=== PATIENT | male | born 1970 | race Caucasian/White ===

== ENCOUNTER 2016-09-07 08:03 | Day surgery (SDC) | payer OTHER ==
[2016-09-07] MEDS ORDERED: NS 1,000 ML IV ONE (08:16)
[2016-09-07] MEDS ORDERED: DIAZEPAM 5 MG TAB PO ONE (08:16)
[2016-09-07] MEDS ORDERED: diphenhydrAMINE 25 MG CAP PO ONE ×2 (08:16→09:04)
[2016-09-07] MEDS ORDERED: ASPIRIN EC 325 MG TAB PO ONE ×2 (08:16→09:04)
[2016-09-07] MEDS ORDERED: FAMOTIDINE 20 MG TAB PO ONE (08:16)
--- NOTE | 2016-09-07 08:45 | CPEKG ---
Heart Rate: 76 RR Interval: 789 P-R Interval: 136 QRSD Interval: 92 QT Interval: 380 QTC Interval: 428 P Ames: 44 QRS Ames: 8 T Wave Ames: 20 EKG Severity - NORMAL ECG - EKG Impression: SINUS RHYTHM Electronically Signed By: Iona Steven 07-Sep-2016 15:10:40
[2016-09-07] MEDS ORDERED: DIAZEPAM 5 MG TAB ONE (09:04)
[2016-09-07] MEDS ORDERED: FAMOTIDINE 20 MG TAB ONE (09:04)
[2016-09-07 09:09] LABS: % IMMATURE GRANULYOCYTES 0.3 % (0.0-1.1); ABSOLUTE IMMATURE GRANULOCYTES 0.02 10^3/uL (0.00-0.10); ADD DIFF? NO; ADD MORPH? NO; ADD SCAN? NO; ATYPICAL LYMPHOCYTE FLAG 0 (0-99); FRAGMENT RBC FLAG 0 (0-99); HEMATOCRIT 48.9 % (40.0-51.0); HEMOGLOBIN 17.3 g/dL (13.7-17.5); LEFT SHIFT FLG 0 (0-99); LIPEMIA HEMOLYSIS FLAG 90 (0-99); MEAN CELL HEMOGLOBIN 29.1 pg (27.9-34.1); MEAN CELL HEMOGLOBIN CONCENTR. 35.4 g/dL (32.4-36.7); MEAN CELL VOLUME 82.3 fL (81.5-99.8); MEAN PLATELET VOLUME 10.4 fL (8.7-11.7); PLATELET CLUMPS FLAG 0 (0-99); PLATELET COUNT 300 10^3/uL (150-400); RED BLOOD CELL COUNT 5.94 10^6/uL (4.40-6.38); RED CELL DISTRIBUTION WIDTH 12.7 % (11.5-15.2)
[2016-09-07 09:16] LABS: INR 1.03 (0.83-1.16); PROTIME(PATIENT) 13.4 SEC (12.0-15.0)
[2016-09-07 09:24] LABS: ANION GAP 12 mEq/L (8-16); CALCIUM 9.7 mg/dL (8.5-10.4); CARBON DIOXIDE 25 mEq/l (22-31); CHLORIDE 104 mEq/L (97-110); CHOLESTEROL 131 mg/dL (140-200); CHOLESTEROL/HDL RATIO 2.91 RATIO (1.00-4.97); CREATININE 0.6 mg/dL (0.7-1.3); GLOMERULAR FILTRATION RATE > 60; GLUCOSE 217 mg/dL (70-100); HIGH DENSITY LIPOPROTEIN 45 mg/dL (40-65); LDL/HDL RATIO 1.42 RATIO (1.00-3.64); LOW DENSITY LIPOPROTEIN 64 mg/dL (70-100); MAGNESIUM 1.9 mg/dL (1.6-2.3); NON-HIGH DENSITY LIPOPROTEIN 86 mg/dL (90-129); POTASSIUM 4.5 mEq/L (3.5-5.2); SODIUM 141 mEq/L (134-144); TRIGLYCERIDE 112 mg/dL (40-150); VERY LOW DENSITY LIPOPROTEINS 22 mg/dL (8-25)
[2016-09-07] MEDS ORDERED: VERAPAMIL 5 MG/2 ML VIAL ONE (09:43)
[2016-09-07] MEDS ORDERED: LIDOCAINE 1% 30 ML SDV ONE (09:43)
[2016-09-07] MEDS ORDERED: MIDAZOLAM 2 MG/2 ML VIAL ONE (09:43)
[2016-09-07] MEDS ORDERED: fentaNYL 100 MCG/2 ML INJ ONE (09:43)
[2016-09-07] MEDS ORDERED: HEPARIN 10,000 UNIT/10 ML MDV ONE (09:43)
[2016-09-07] MEDS ORDERED: IOPAMIDOL (ISOVUE-370) 150 ML BTL IV ONE ×2 (09:44→10:24)
--- NOTE | 2016-09-07 11:04 | PDDXCAT ---
Diagnostic Cath Note - . 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 Injtermediate risk nuclear stress test. ) - Procedure Access: right wrist Procedure: left heart catheterization, coronary angiography, left ventriculogram - Materials Left Heart Cath size: 5F Left Heart Cath materials: JL3.5, JR4.0, pigtail - Findings-Left Heart Catheterization LM: Normal. Appropriate bifurcation into the LAD and circumflex. LAD: Large caliber. Transapical vessel. 2 diagonal branches. Angiographically normal vessel. LCX: Small vessel within the AV groove. Large 1st obtuse marginal branch with a smaller 2nd obtuse marginal branch. No evidence of disease. RCA: Large caliber. Dominant. Single PDA and posterior lateral. Angiographically normal. EDP: 119/14/17 mmHg. LVEF: 65%. Wall motion: Normal wall motion. - Findings-Right Heart Catheterization AO: 119/80/99 mmHg. Complications: None. Estimated blood loss: <50ml Closure method: TR Band Assessment: Normal left heart catheterization. Plan: Based on the results of this study, there are no cardiovascular contraindications to this patient safely undergoing noncardiac surgery. Intervention: None.
== END 2016-09-07 13:15 | disposition home or self-care (01) ==
LOC: FCATH 08:03
PROVIDERS: ATTEND Internal Medicine Cardiovascular Disease
PROC: B2111ZZ Fluoroscopy of Multiple Coronary Arteries using Low Osmolar Contrast (ICD-10-PCS; principal; 2016-09-07)
PROC: 4A023N7 Measurement of Cardiac Sampling and Pressure, Left Heart, Percutaneous Approach (ICD-10-PCS; principal; 2016-09-07)
PROC: B2151ZZ Fluoroscopy of Left Heart using Low Osmolar Contrast (ICD-10-PCS; principal; 2016-09-07)
DX: Z01.810 Encounter for preprocedural cardiovascular examination (principal); E11.9 Type 2 diabetes mellitus without complications; E78.5 Hyperlipidemia, unspecified; Z82.49 Family history of ischemic heart disease and other diseases of the circulatory system; S83.207D Unspecified tear of unspecified meniscus, current injury, left knee, subsequent encounter; X58.XXXD Exposure to other specified factors, subsequent encounter
CPT/HCPCS: 93005; 93458; C1769; J1644; J2250; J3010; Q9967